=== PATIENT | female | born 1980 | race Two or more races ===

== ENCOUNTER 2023-12-17 10:40 | Emergency (ER) | payer OTHER ==
[~2023-12-17] VITALS: Ht 149.9 cm; Wt 75.1 kg
[2023-12-17 11:48] LABS: BASO % 0.6 % (0.0-1.0); EOS # 0.1 10^3/uL (0.0-0.5); EOS % 1.7 % (0.0-3.0); HEMATOCRIT 30.4 % (36.0-47.0); HEMOGLOBIN 9.9 g/dl (12.0-15.5); LYMPH # 1.9 10^3/uL (1.5-5.0); MEAN CORPUSCULAR HEMOGLOBIN 30.7 pg (27.0-33.0); MEAN CORPUSCULAR HGB CONC 32.6 g/dl (32.0-36.5); MEAN CORPUSCULAR VOLUME 94.1 fl (80.0-96.0); MONO # 0.6 10^3/uL (0.0-0.8); MONO % 8.4 % (2.0-8.0); NEUTROPHILS # 4.3 10^3/uL (1.5-8.5); NEUTROPHILS % 62.2 % (36.0-66.0); PLATELET COUNT, AUTOMATED 145 10^3/uL (150-450); RED BLOOD COUNT 3.23 10^6/uL (4.00-5.40); WHITE BLOOD COUNT 6.9 10^3/uL (4.0-10.0)
[2023-12-17 12:22] LABS: HCG, SERUM QUALITATIVE NEGATIVE (NEGATIVE)
[2023-12-17 12:35] LABS: LIPASE 23 U/L (12-53)
[2023-12-17 12:37] LABS: ALBUMIN 2.9 G/DL (3.2-5.2); ALKALINE PHOSPHATASE 108 U/L (46-116); ALT/SGPT 47 U/L (7.0-40); AST/SGOT 148 U/L (<34); BILIRUBIN,DIRECT 0.9 MG/DL (<0.4); BILIRUBIN,TOTAL 1.6 MG/DL (0.3-1.2); BLOOD UREA NITROGEN 6 MG/DL (9-23); CALCIUM LEVEL 8.7 MG/DL (8.5-10.1); CARBON DIOXIDE LEVEL 25 MMOL/L (20-31); CHLORIDE LEVEL 104 MMOL/L (98-107); CREATININE FOR GFR 0.57 MG/DL (0.55-1.30); GLOMERULAR FILTRATION RATE > 60.0 (>58); GLUCOSE, FASTING 99 MG/DL (60-100); POTASSIUM SERUM 3.1 MMOL/L (3.5-5.1); SODIUM LEVEL 137 MMOL/L (136-145); TOTAL PROTEIN 7.3 G/DL (5.7-8.2)
[2023-12-17] MEDS: POTASSIUM CHLORIDE 10% LIQ 20MEQ/15ML UDC PO ONE (15:28)
[2023-12-17] MEDS: GASTROGRAFIN SOLUTION 30ML PO SCH (15:28)
[2023-12-17] MEDS ORDERED: ISOVUE-370 76% 100ML VIAL As Ordered ONE (17:19)
[2023-12-17] MEDS: KETOROLAC 30 MG/ML 1ML VIAL IV ONE (17:48)
[2023-12-17] MEDS ORDERED: QUES4POW PO (17:59)
[2023-12-17] MEDS ORDERED: POTA-298 PO (18:28)
[2023-12-17] MEDS: NS 1,000 ML IV ONE (18:36)
[2023-12-17 19:43] VITALS: BP 127/76; TEMP 97.7; O2SAT 99
== END 2023-12-17 19:54 | disposition home or self-care (01) ==
LOC: M ED 10:40
DX: A04.72 Enterocolitis due to Clostridium difficile, not specified as recurrent (principal); E87.6 Hypokalemia; R00.0 Tachycardia, unspecified; I45.81 Long QT syndrome; F41.9 Anxiety disorder, unspecified
CPT/HCPCS: 74177; 80048; 80076; 81001; 83690; 84703; 85025; 87324; 87507; 93005; 96361; 96374; 99284; J1885; Q9963; Q9967